=== PATIENT | male | born 1980 | race Two or more races ===

== ENCOUNTER 2023-05-29 20:12 | Emergency (ER) | payer MEDICAID, OTHER ==
[~2023-05-29] VITALS: Ht 170.2 cm; Wt 80.0 kg
[2023-05-29 20:48] VITALS: BP 150/90; PULSE 100; RESP 20; O2SAT 99
== END 2023-05-29 21:47 | disposition left against medical advice (07) ==
LOC: EDBD 20:12 → ER 20:12
DX: F41.9 Anxiety disorder, unspecified (principal); Z53.21 Procedure and treatment not carried out due to patient leaving prior to being seen by health care provider
CPT/HCPCS: 99281; J7030